=== PATIENT | female | born 1995 | race African-American/Black ===

== ENCOUNTER 2022-02-27 13:26 | Outpatient (CLI) | payer OTHER ==
[2022-02-27 22:04] LABS: CHLAMYDIA TRACHOMATIS DNA NEGATIVE (NEGATIVE); NEISSERIA GONORRHOEAE DNA NEGATIVE (NEGATIVE); TRICHOMONAS VAGINALIS DNA NEGATIVE (NEGATIVE)
[2022-03-01 05:11] LABS: HCV AB <0.1 s/co ratio (0.0-0.9); HIV SCREEN 4TH GENERATION Non Reactive (Non Reactive)
[2022-03-01 07:09] LABS: RPR Non Reactive (Non Reactive)
== END 2022-02-27 13:27 | disposition home or self-care (01) ==
LOC: LAB.N 13:26
PROVIDERS: ATTEND Physician Assistant Medical
DX: Z20.2 Contact with and (suspected) exposure to infections with a predominantly sexual mode of transmission (principal)
CPT/HCPCS: 36415; 86592; 86803; 87086; 87389; 87491; 87591; 87661